=== PATIENT | male | born 1970 | race Caucasian/White ===

== ENCOUNTER 2019-04-26 10:50 | Emergency (ER) | payer OTHER ==
[~2019-04-26] VITALS: Ht 180.3 cm; Wt 163.0 kg
--- NOTE | 2019-04-26 11:38 | PHYS DOC ---
Past History Past Medical History: Other Additional Past Medical Histor: ADHD Smoking: Cigarettes Alcohol Use: Occasionally Drug Use: Marijuana Adult General Chief Complaint Chief Complaint: GROIN PAIN HPI HPI Patient is a 49-year-old male presents with left testicular pain for the past 2- 3 weeks. Waxing and waning. He was seen in [facility] approximately 2 weeks ago and had a workup and was started on antibiotics. He has not had any significant improvement since completing the antibiotics. Notes some discomfort when urinating. No blood in the urine. No trauma. No fever. He is sexually active with one person, his . No radiation of the discomfort. Repeat reports the pain is severe in nature.[] Review of Systems Review of Systems Constitutional: Denies fever or chills [] Eyes: Denies change in visual acuity, redness, or eye pain [] HENT: Denies nasal congestion or sore throat [] Respiratory: Denies cough or shortness of breath [] Cardiovascular: No chest pain or palpitations[] GI: Denies abdominal pain, nausea, vomiting, bloody stools or diarrhea [] : See history of present illness[] Musculoskeletal: Denies back pain or joint pain [] Integument: Denies rash or skin lesions [] Neurologic: Denies headache, focal weakness or sensory changes [] Endocrine: Denies polyuria or polydipsia [] All other systems were reviewed and found to be within normal limits, except as documented in this note. Allergies Allergies Allergies Coded Allergies Type Severity Reaction Last Updated Verified No Known Drug Allergies 04/26/19 No Physical Exam Physical Exam Constitutional: Well developed, well nourished, no acute distress, non-toxic appearance. [] HENT: Normocephalic, atraumatic, bilateral external ears normal, oropharynx moist, no oral exudates, nose normal. [] Eyes: PERRLA, EOMI, conjunctiva normal, no discharge. [] Neck: Normal range of motion, no tenderness, supple, no stridor. [] Cardiovascular:Heart rate regular rhythm, no murmur [] Lungs & Thorax: Bilateral breath sounds clear to auscultation [] Abdomen: Bowel sounds normal, soft, no tenderness, no masses, no pulsatile masses. : Normal male with bilateral descended testes. Circumcised. There is tenderness along the posterior aspect of the left testicle. No hernia palpated normal cremaster reflex bilaterally. No discharge from the urethral meatus. No inguinal lymphadenopathy [] Skin: Warm, dry, no erythema, no rash. [] Back: No tenderness, no CVA tenderness. [] Extremities: No tenderness, no cyanosis, no clubbing, ROM intact, no edema. [] Neurologic: Alert and oriented X 3, normal motor function, normal sensory function, no focal deficits noted. [] Psychologic: Affect normal, judgement normal, mood normal. [] EKG EKG [] Radiology/Procedures Radiology/Procedures PROCEDURE: TESTICULAR/SCROTUM Testicular and scrotal ultrasound History: Left testicular pain Comparison: None. Findings: Multiple grayscale, color, and duplex spectral analysis waveform images of the testicles and scrotum are submitted. Right testicle measured 3.9 x 1.8 x 3. Left testicle measured 3.9 x 2.4 x 1.8 cm. There is normal low resistance vascularity of interrogated intratesticular vessels bilaterally. No intratesticular mass is demonstrated. Testicular parenchyma is homogeneous bilaterally. No asymmetric hyperemia is identified of either testicle. There is left varicocele. Impression: 1. There is left varicocele. 2. There is no evidence of testicular torsion or intratesticular mass.[] Course & Med Decision Making Course & Med Decision Making Pertinent Labs and Imaging studies reviewed. (See chart for details) [place]: Patient arrived, was placed in bed, and tolerated exam well. He was transported to and from [facility] without any complications. After return of the ultrasound laboratory findings, these were discussed patient voiced understanding. All questions were answered. He was discharged in improved condition. Medical decision making: This does not appear to be epididymitis, no evidence of torsion, no evidence of an incarcerated or strangulated hernia.[] Dragon Disclaimer Dragon Disclaimer This electronic medical record was generated, in whole or in part, using a voice recognition dictation system. Departure Departure: Impression: Primary Impression: Left varicocele Disposition: 01 HOME, SELF-CARE Condition: IMPROVED Referrals: PIETER CARRILLO (PCP) Patient Instructions: Testicular Masses Additional Instructions: Follow-up with your primary care team. Take medication as prescribed. Return to the ER if blood in the urine, fever of more than 101�, or any other concerns. Scripts Tramadol Hcl (TRAMADOL HCL) 50 Mg Tablet 50 MG PO PRN Q6HRS PRN for PAIN, #20 TAB Prov: OLINDA HOROWITZ DO 04/26/19 Meloxicam (MELOXICAM) 7.5 Mg Tablet 7.5 MG PO DAILY for PAIN, #20 TAB Prov: OLINDA HOROWITZ DO 04/26/19 OLINDA HOROWITZ DO Apr 26, 2019 11:38
[2019-04-26] MEDS ORDERED: KETOROLAC 15 MG/ML VIAL. IV ONE (11:45)
[2019-04-26 11:57] LABS: BACTERIA,URINE 0 /HPF (0-FEW); BILIRUBIN,URINE NEG (NEG); CLARITY,URINE CLEAR; COLOR,URINE YELLOW; GLUCOSE,URINE NEG (NEG); NITRITE,URINE NEG (NEG); RBC,URINE 0 /HPF (0-2); UROBILINOGEN,URINE 0.2 mg/dL (0.2 mg/dL)
[2019-04-26 12:02] LABS: BASO % 1 % (0-3); EOS # 0.1 x10^3/uL (0.0-0.7); EOS % 2 % (0-3); HEMATOCRIT 38.9 % (39.0-53.0); HEMOGLOBIN 13.2 g/dL (13.0-17.5); LYMPH % 32 % (24-48); MEAN CORPUSCULAR HEMOGLOBIN 30 pg (25-35); MEAN CORPUSCULAR HGB CONC 34 g/dL (31-37); MEAN CORPUSCULAR VOLUME 88 fL (79-100); MONO # 0.4 x10^3/uL (0.0-1.1); MONO % 6 % (0-9); NEUT # 3.8 x10^3uL (1.8-7.7); NEUT % 60 % (31-73); PLATELET COUNT 172 x10^3/uL (140-400); RED BLOOD COUNT 4.45 x10^6/uL (4.30-5.70); RED CELL DISTRIBUTION WIDTH 13.9 % (11.5-14.5); WHITE BLOOD COUNT 6.4 x10^3/uL (4.0-11.0)
[2019-04-26 12:07] LABS: CALCIUM 8.7 mg/dL (8.5-10.1); CREATININE 0.9 mg/dL (0.7-1.3); GFR 90.1; POTASSIUM 3.5 mmol/L (3.5-5.1)
[2019-04-26 12:13] VITALS: BP 118/63
--- NOTE | 2019-04-26 12:15 | RAD ---
Testicular and scrotal ultrasound History: Left testicular pain Comparison: None. Findings: Multiple grayscale, color, and duplex spectral analysis waveform images of the testicles and scrotum are submitted. Right testicle measured 3.9 x 1.8 x 3. Left testicle measured 3.9 x 2.4 x 1.8 cm. There is normal low resistance vascularity of interrogated intratesticular vessels bilaterally. No intratesticular mass is demonstrated. Testicular parenchyma is homogeneous bilaterally. No asymmetric hyperemia is identified of either testicle. There is left varicocele. Impression: 1. There is left varicocele. 2. There is no evidence of testicular torsion or intratesticular mass. Electronically signed by: Vivek Swanson MD (04/26/2019 12:12 PM) [id number]
[2019-04-26] MEDS ORDERED: MELO7.5T29 PO (12:26)
[2019-04-26] MEDS ORDERED: TRAM50TA PO (12:26)
== END 2019-04-26 12:39 | disposition home or self-care (01) ==
LOC: ER 10:50
DX: I86.1 Scrotal varices (principal); F90.9 Attention-deficit hyperactivity disorder, unspecified type; F17.210 Nicotine dependence, cigarettes, uncomplicated
CPT/HCPCS: 36415; 76870; 80048; 81001; 85025; 87491; 87591; 96374; 99285; J1885